=== PATIENT | male | born 1990 | race Caucasian/White ===

== ENCOUNTER 2020-12-15 11:14 | Emergency (ER) | payer SELFPAY ==
[2020-12-15] MEDS ORDERED: BACTRIM DS TAB1 EACH PO (11:51)
[2020-12-15] MEDS ORDERED: CEPHALEXIN500 M1 PO (12:01)
== END 2020-12-15 12:11 | disposition home or self-care (01) ==
LOC: ER1 11:14
DX: L02.415 Cutaneous abscess of right lower limb (principal); L72.3 Sebaceous cyst
CPT/HCPCS: 99282